=== PATIENT | female | born 1960 | race Hispanic/Latino ===

== ENCOUNTER → 2020-09-27 | Outpatient (CLI) | payer MEDICARE ==
[~2020-09-27] VITALS: Ht 154.9 cm; Wt 61.7 kg
[~2020-09-27] MED LIST: REGADENOSON 0.4 MG/5 ML PF SYG IVP SCH
== END | disposition home or self-care (01) ==
LOC: SHCH 08:35
PROVIDERS: ATTEND Internal Medicine Cardiovascular Disease
DX: Z01.810 Encounter for preprocedural cardiovascular examination (principal); R94.31 Abnormal electrocardiogram [ECG] [EKG]
CPT/HCPCS: 78452; 93017; A9500 ×2; 96374

== ENCOUNTER 2021-03-01 10:05 | Emergency (ER) | payer MEDICARE ==
[~2021-03-01] VITALS: Ht 154.9 cm; Wt 61.2 kg
[2021-03-01 10:46] LABS: BASOPHILS % (AUTO) 0.8 % (0.0-5.0); EOSINOPHILS % (AUTO) 3.5 % (0.0-8.0); HEMATOCRIT 40.5 % (36-48); LYMPHOCYTES % (AUTO) 27.8 % (21.0-51.0); MEAN CORPUSCULAR HEMOGLOBIN 31.4 pg (27.0-33.0); MEAN CORPUSCULAR HGB CONC 32.6 g/dL (32.0-36.0); MEAN CORPUSCULAR VOLUME 96.4 fL (79-99); MONOCYTES % (AUTO) 8.3 % (3.0-13.0); NEUTROPHILS % (AUTO) 59.4 % (40.0-77.0); PLATELET COUNT (AUTO) 143 K/uL (130-400); RED CELL DISTRIBUTION WIDTH 12.9 % (11.0-15.5); WHITE BLOOD COUNT (AUTO) 6.6 K/uL (4.8-10.8)
[2021-03-01 10:57] LABS: CREATININE 4.5 mg/dL (0.5-1.5); POTASSIUM 4.3 mmol/L (3.5-5.1)
[2021-03-01 11:02] LABS: ALBUMIN 3.6 g/dL (3.5-5.0); BILIRUBIN,TOTAL 0.4 mg/dL (0.2-1.0); TOTAL PROTEIN, SERUM 7.4 g/dL (6.0-8.3)
[2021-03-01 14:24] VITALS: BP 153/83
[2021-05-01] MEDS ORDERED: LEVO150C4 PO (10:18)
[2021-05-01] MEDS ORDERED: ASPI-1443 PO (10:18)
[2021-05-01] MEDS ORDERED: FOLI0.8T22 PO (10:18)
== END 2021-03-01 14:34 | disposition home or self-care (01) ==
LOC: EDH 10:05
DX: E87.2 Acidosis (principal); R51.9 Headache, unspecified; I11.9 Hypertensive heart disease without heart failure; R53.1 Weakness; Z99.2 Dependence on renal dialysis
CPT/HCPCS: 36415; 71045; 80053; 83605; 85025

== ENCOUNTER 2021-05-02 07:58 | Day surgery (SDC) | payer MEDICARE ==
[2021-04-30 09:21] LABS: BASOPHILS % (AUTO) 0.7 % (0.0-5.0); EOSINOPHILS % (AUTO) 2.4 % (0.0-8.0); HEMATOCRIT 34.2 % (36-48); LYMPHOCYTES % (AUTO) 35.4 % (21.0-51.0); MEAN CORPUSCULAR HEMOGLOBIN 30.8 pg (27.0-33.0); MEAN CORPUSCULAR VOLUME 93.2 fL (79-99); MONOCYTES % (AUTO) 6.5 % (3.0-13.0); NEUTROPHILS % (AUTO) 54.8 % (40.0-77.0); PLATELET COUNT (AUTO) 236 K/uL (130-400); RED BLOOD CELL COUNT(AUTO) 3.67 MIL/uL (4.00-5.50); RED CELL DISTRIBUTION WIDTH 14.5 % (11.0-15.5); WHITE BLOOD COUNT (AUTO) 5.9 K/uL (4.8-10.8)
[2021-04-30 09:48] LABS: CREATININE 7.3 mg/dL (0.5-1.5); POTASSIUM 5.5 mmol/L (3.5-5.1)
[2021-04-30 10:02] LABS: INR 1.06 (0.85-1.15); PROTHROMBIN TIME 11.5 SEC (9.6-11.6)
[2021-05-02] VITALS (10 sets, daily range): BP systolic 100–135; BP diastolic 57–81
[~2021-05-02] VITALS: Ht 154.9 cm; Wt 60.3 kg
[~2021-05-02 07:58] MED LIST changes: +ASPI-1443 PO; +FOLI0.8T22 PO; +LEVO150C4 PO; -REGADENOSON 0.4 MG/5 ML PF SYG IVP SCH
[2021-05-02] MEDS ORDERED: 0.9%NACL 1000ML 1,000 ML IV SCH (08:00)
[2021-05-02 08:54] LABS: CREATININE 6.5 mg/dL (0.5-1.5); POTASSIUM 5.2 mmol/L (3.5-5.1)
[2021-05-02] MEDS ORDERED: IOHEXOL 350 MG/ML 100ML INFUS..BTL IV ONE (09:46)
[2021-05-02] MEDS ORDERED: LIDOCAINE HCL 400MG/20ML VIAL ONE (09:46)
[2021-05-02] MEDS ORDERED: IOHEXOL-350 50ML VIAL IV ONE (09:46)
[2021-05-02] MEDS ORDERED: NITROGLYCERIN 2 MG VIAL IV ONE (09:46)
[2021-05-02] MEDS ORDERED: FENTANYL CITRATE PF 50 MCG/1 ML 2ML VIAL ONE (10:39)
[2021-05-02] MEDS ORDERED: MIDAZOLAM HCL 1 MG/ML 2ML VIAL ONE (10:39)
== END 2021-05-02 15:30 | disposition home or self-care (01) ==
LOC: DAH 07:58
PROVIDERS: ATTEND Internal Medicine Cardiovascular Disease
DX: I25.10 Atherosclerotic heart disease of native coronary artery without angina pectoris (principal); I13.11 Hypertensive heart and chronic kidney disease without heart failure, with stage 5 chronic kidney disease, or end stage renal disease; N18.6 End stage renal disease; Z99.2 Dependence on renal dialysis; F17.210 Nicotine dependence, cigarettes, uncomplicated; Z79.899 Other long term (current) drug therapy; Z79.01 Long term (current) use of anticoagulants; Z79.82 Long term (current) use of aspirin; Z86.718 Personal history of other venous thrombosis and embolism; Z90.49 Acquired absence of other specified parts of digestive tract; Z82.49 Family history of ischemic heart disease and other diseases of the circulatory system; Z83.3 Family history of diabetes mellitus; Z98.890 Other specified postprocedural states
CPT/HCPCS: 36415 ×2; 71045; 80048 ×2; 82948; 85025; 85610; 85730; 93005; 93458; A4215 ×2; A4216; A4221; A4222; A4223 ×3; A4606; A4663; C1760; C1894 ×2; J1644; J2250; J3010; J3490 ×2; J7030; Q9965; Q9967 ×2; 99156; 99157

== ENCOUNTER 2021-05-17 06:30 | Emergency (ER) | payer MEDICARE ==
[~2021-05-17] VITALS: Ht 154.9 cm; Wt 62.6 kg
[2021-05-17 08:48] LABS: BASOPHILS % (AUTO) 0.6 % (0.0-5.0); EOSINOPHILS % (AUTO) 2.5 % (0.0-8.0); HEMATOCRIT 31.2 % (36-48); LYMPHOCYTES % (AUTO) 28.2 % (21.0-51.0); MEAN CORPUSCULAR HEMOGLOBIN 30.8 pg (27.0-33.0); MEAN CORPUSCULAR HGB CONC 32.4 g/dL (32.0-36.0); MEAN CORPUSCULAR VOLUME 95.1 fL (79-99); MONOCYTES % (AUTO) 6.1 % (3.0-13.0); NEUTROPHILS % (AUTO) 62.2 % (40.0-77.0); PLATELET COUNT (AUTO) 162 K/uL (130-400); RED BLOOD CELL COUNT(AUTO) 3.28 MIL/uL (4.00-5.50); RED CELL DISTRIBUTION WIDTH 14.3 % (11.0-15.5); WHITE BLOOD COUNT (AUTO) 8.5 K/uL (4.8-10.8)
[2021-05-17] MEDS ORDERED: LORAZEPAM 2 MG/ML 1 ML VIAL IVP SCH (09:00)
[2021-05-17] MEDS ORDERED: KETOROLAC 30MG VIAL (30MG/ML) IV SCH (09:00)
[2021-05-17 10:00] LABS: ALBUMIN 3.3 g/dL (3.5-5.0); BILIRUBIN,TOTAL 0.4 mg/dL (0.2-1.0); TOTAL PROTEIN, SERUM 6.7 g/dL (6.0-8.3)
[2021-05-17 12:46] VITALS: BP 137/82
[2021-05-17] MEDS ORDERED: LIDOP TD (12:53)
[2021-05-17] MEDS ORDERED: KETO10 PO (12:53)
== END 2021-05-17 13:05 | disposition home or self-care (01) ==
LOC: EDH 06:30
DX: M94.0 Chondrocostal junction syndrome [Tietze] (principal); Z79.82 Long term (current) use of aspirin; Z79.899 Other long term (current) drug therapy
CPT/HCPCS: 36415; 71045; 78582; 80053; 84484; 85025; 85378; 93005; 96374; 96375; 99285; A9540; A9558; J1885; J2060

== ENCOUNTER 2021-09-10 15:09 | Emergency (ER) | payer MEDICARE ==
[~2021-09-10] VITALS: Ht 154.9 cm; Wt 59.0 kg
[~2021-09-10 15:09] MED LIST changes: +KETO10 PO; +LIDOP TD
[2021-09-10 15:15] VITALS: BP 157/82
[2021-09-10 16:02] LABS: BASOPHILS % (AUTO) 0.9 % (0.0-5.0); EOSINOPHILS % (AUTO) 3.9 % (0.0-8.0); LYMPHOCYTES % (AUTO) 39.5 % (21.0-51.0); MEAN CORPUSCULAR HEMOGLOBIN 30.1 pg (27.0-33.0); MEAN CORPUSCULAR HGB CONC 32.4 g/dL (32.0-36.0); MEAN CORPUSCULAR VOLUME 92.7 fL (79-99); MONOCYTES % (AUTO) 7.9 % (3.0-13.0); NEUTROPHILS % (AUTO) 47.6 % (40.0-77.0); PLATELET COUNT (AUTO) 156 K/uL (130-400); RED BLOOD CELL COUNT(AUTO) 3.56 MIL/uL (4.00-5.50); RED CELL DISTRIBUTION WIDTH 13.2 % (11.0-15.5); WHITE BLOOD COUNT (AUTO) 5.7 K/uL (4.8-10.8)
[2021-09-10 16:19] LABS: ALBUMIN 3.8 g/dL (3.5-5.0); BILIRUBIN,TOTAL 0.4 mg/dL (0.2-1.0); POTASSIUM 5.5 mmol/L (3.5-5.1); TOTAL PROTEIN, SERUM 7.2 g/dL (6.0-8.3)
[2021-09-10 16:24] LABS: CREATININE 8.9 mg/dL (0.5-1.5)
[2021-09-10] MEDS ORDERED: ONDANSETRON 4MG INJ IVP ONE ×2 (16:30)
[2021-09-10] MEDS ORDERED: 0.9%NACL 1000ML 1,000 ML IV ONE (16:30)
[2021-09-10] MEDS ORDERED: PANTOPRAZOLE 40 MG/VIAL IVP ONE (17:00)
[2021-09-10] MEDS ORDERED: FAMO20TA8 PO (18:20)
[2021-09-10] MEDS ORDERED: PANTOPRAZOLE 40 MG/VIAL ONE (18:37)
== END 2021-09-10 18:42 | disposition home or self-care (01) ==
LOC: EDH 15:09
DX: K21.9 Gastro-esophageal reflux disease without esophagitis (principal); I13.10 Hypertensive heart and chronic kidney disease without heart failure, with stage 1 through stage 4 chronic kidney disease, or unspecified chronic kidney disease; N18.9 Chronic kidney disease, unspecified; Z90.49 Acquired absence of other specified parts of digestive tract; Z95.1 Presence of aortocoronary bypass graft; Z98.890 Other specified postprocedural states; Z79.82 Long term (current) use of aspirin; Z79.899 Other long term (current) drug therapy; Z88.8 Allergy status to other drugs, medicaments and biological substances
CPT/HCPCS: 36415; 80053; 82150; 83690; 84484; 85025; 93005; 96374; 96375; 99284; C9113; J2405

== ENCOUNTER 2023-01-20 10:54 | Emergency (ER) | payer OTHER, MEDICARE ==
[~2023-01-20] VITALS: Ht 154.9 cm; Wt 51.3 kg
[2023-01-20 11:52] LABS: BASOPHILS # (AUTO) 0.04 K/uL (0.00-0.20); EOSINOPHILS # (AUTO) 0.06 K/uL (0.00-0.70); EOSINOPHILS % (AUTO) 1.5 % (0.0-8.0); HEMATOCRIT 30.8 % (36-48); IMMATURE GRANULOCYTE ABSOLUTE 0.01 K/uL (0-1); LYMPHOCYTES % (AUTO) 24.3 % (21.0-51.0); MEAN CORPUSCULAR HEMOGLOBIN 29.1 pg (27.0-33.0); MEAN CORPUSCULAR HGB CONC 31.5 g/dL (32.0-36.0); MEAN CORPUSCULAR VOLUME 92.5 fL (79-99); MONOCYTES # (AUTO) 0.3 K/uL (0.1-1.0); MONOCYTES % (AUTO) 6.4 % (3.0-13.0); NEUTROPHILS # (AUTO) 2.7 K/uL (1.8-7.7); NEUTROPHILS % (AUTO) 66.6 % (40.0-77.0); PLATELET COUNT (AUTO) 235 K/uL (130-400); RED BLOOD CELL COUNT(AUTO) 3.33 MIL/uL (4.00-5.50); RED CELL DISTRIBUTION WIDTH 14.9 % (11.0-15.5)
[2023-01-20 11:58] LABS: CREATININE 6.8 mg/dL (0.5-1.5); POTASSIUM 4.1 mmol/L (3.5-5.1)
[2023-01-20 12:02] LABS: ALBUMIN 3.4 g/dL (3.5-5.0); BILIRUBIN,TOTAL 0.3 mg/dL (0.2-1.0); TOTAL PROTEIN, SERUM 7.1 g/dL (6.0-8.3)
[2023-01-20 12:29] VITALS: BP 117/73; PULSE 66; RESP 18; O2SAT 98
== END 2023-01-20 12:52 | disposition home or self-care (01) ==
LOC: EDH 10:54
DX: I13.2 Hypertensive heart and chronic kidney disease with heart failure and with stage 5 chronic kidney disease, or end stage renal disease (principal); N18.6 End stage renal disease; I50.9 Heart failure, unspecified; D64.9 Anemia, unspecified; Z99.2 Dependence on renal dialysis; Z90.89 Acquired absence of other organs
CPT/HCPCS: 36415; 71045; 80053; 83880; 84484; 85025; 93005

== ENCOUNTER 2023-03-09 01:58 | Inpatient (IN) | payer OTHER, MEDICARE ==
[2023-03-09] VITALS (30 sets, daily range): BP systolic 129–176; BP diastolic 81–99; PULSE 63–111; RESP 14–34; TEMP 98.7–98.8; O2SAT 96–100
[~2023-03-09] VITALS: Ht 154.9 cm; Wt 50.3 kg
[2023-03-09 02:29] LABS: BASOPHILS # (AUTO) 0.05 K/uL (0.00-0.20); BASOPHILS % (AUTO) 0.5 % (0.0-5.0); EOSINOPHILS # (AUTO) 0.22 K/uL (0.00-0.70); HEMATOCRIT 35.8 % (36-48); IMMATURE GRANULOCYTE ABSOLUTE 0.05 K/uL (0-1); LYMPHOCYTES # (AUTO) 1.4 K/uL (1.0-4.8); LYMPHOCYTES % (AUTO) 13.1 % (21.0-51.0); MEAN CORPUSCULAR HEMOGLOBIN 27.3 pg (27.0-33.0); MEAN CORPUSCULAR HGB CONC 30.2 g/dL (32.0-36.0); MEAN CORPUSCULAR VOLUME 90.6 fL (79-99); MONOCYTES # (AUTO) 0.4 K/uL (0.1-1.0); MONOCYTES % (AUTO) 3.4 % (3.0-13.0); NEUTROPHILS # (AUTO) 8.7 K/uL (1.8-7.7); NEUTROPHILS % (AUTO) 80.5 % (40.0-77.0); PLATELET COUNT (AUTO) 183 K/uL (130-400); RED BLOOD CELL COUNT(AUTO) 3.95 MIL/uL (4.00-5.50); RED CELL DISTRIBUTION WIDTH 18.6 % (11.0-15.5); WHITE BLOOD COUNT (AUTO) 10.8 K/uL (4.8-10.8)
[2023-03-09] MEDS ORDERED: HYDRALAZINE 20MG/ML VIAL ONE (02:31)
[2023-03-09 02:43] LABS: SARS-CoV-2, RNA, NAAT NEGATIVE SARS CoV-2 (NEGATIVE)
[2023-03-09 02:45] LABS: ALBUMIN 3.3 g/dL (3.5-5.0); BILIRUBIN,TOTAL 0.7 mg/dL (0.2-1.0); POTASSIUM 4.7 mmol/L (3.5-5.1); TOTAL PROTEIN, SERUM 6.9 g/dL (6.0-8.3)
[2023-03-09 02:46] LABS: CREATININE 9.6 mg/dL (0.5-1.5)
[2023-03-09 02:47] LABS: INFLUENZA TYPE A Negative For Type A (NEGATIVE); INFLUENZA TYPE B Negative For Type B (NEGATIVE)
[2023-03-09] MEDS ORDERED: HYDRALAZINE 20MG/ML VIAL IV ONE ×2 (03:00)
[2023-03-09] MEDS ORDERED: IPRATROPIUM/ALBUTEROL SULFATE 3 ML SOLUTION IH ONE (03:00)
[2023-03-09] MEDS ORDERED: SOLU-MEDROL 125MG VIAL IVP ONE (03:00)
[2023-03-09] MEDS ORDERED: ACETAMINOPHEN 500 MG TABLET ONE (03:24)
[2023-03-09] MEDS ORDERED: ACETAMINOPHEN 500 MG TABLET PO ONE (03:30)
[2023-03-09 03:57] LABS: B-TYPE NATRIURETIC PEPTIDE > 5000 pg/mL (0-100)
[2023-03-09] MEDS ORDERED: MORPHINE 2 MG SYG ONE (03:59)
[2023-03-09] MEDS ORDERED: MORPHINE 2 MG SYG IV PRN (04:00)
[2023-03-09] MEDS ORDERED: ACETAMINOPHEN 325 MG TAB PO PRN ×2 (04:00)
[2023-03-09] MEDS ORDERED: MORPHINE 2 MG SYG IVP ONE (04:00)
[2023-03-09] MEDS ORDERED: LACTULOSE 20 GM/30 ML UDCUP PO PRN (04:00)
[2023-03-09] MEDS ORDERED: LABETALOL 20MG VIAL IV PRN (04:00)
[2023-03-09] MEDS ORDERED: ONDANSETRON 4MG INJ IV PRN (04:00)
[2023-03-09] MEDS: IPRATROPIUM/ALBUTEROL SULFATE 3 ML SOLUTION IH SCH ×4 (06:59→23:30)
[2023-03-09] MEDS: FAMOTIDINE 20MG VIAL IV SCH ×2 (08:09→21:00)
[2023-03-09] MEDS ORDERED: HEPARIN 5,000 UNIT VIAL IJ PRN (08:45)
[2023-03-09] MEDS ORDERED: HYDRALAZINE 20MG/ML VIAL IV PRN (11:30)
[2023-03-09] MEDS ORDERED: ONDANSETRON 4MG INJ IVP PRN (11:30)
[2023-03-09] MEDS: ASPIRIN 81 MG EC TAB PO SCH (18:37)
[2023-03-10 03:30] VITALS: BP 121/70; PULSE 78; RESP 20
[2023-03-10 04:34] LABS: HEMATOCRIT 35.1 % (36-48); MEAN CORPUSCULAR HEMOGLOBIN 27.3 pg (27.0-33.0); MEAN CORPUSCULAR HGB CONC 30.8 g/dL (32.0-36.0); MEAN CORPUSCULAR VOLUME 88.9 fL (79-99); RED BLOOD CELL COUNT(AUTO) 3.95 MIL/uL (4.00-5.50); RED CELL DISTRIBUTION WIDTH 19.5 % (11.0-15.5); WHITE BLOOD COUNT (AUTO) 6.9 K/uL (4.8-10.8)
[2023-03-10 04:59] LABS: ALBUMIN 3.3 g/dL (3.5-5.0); BILIRUBIN,TOTAL 0.6 mg/dL (0.2-1.0); CREATININE 6.9 mg/dL (0.5-1.5); MAGNESIUM 2.1 mg/dL (1.80-2.40); POTASSIUM 4.4 mmol/L (3.5-5.1); TOTAL PROTEIN, SERUM 6.9 g/dL (6.0-8.3)
[2023-03-10] MEDS: IPRATROPIUM/ALBUTEROL SULFATE 3 ML SOLUTION IH SCH (06:31)
[2023-03-10 06:33] VITALS: PULSE 93; RESP 18; O2SAT 99
[2023-03-10 06:34] VITALS: PULSE 93; RESP 18
[2023-03-10 07:48] VITALS: BP 166/107; PULSE 86; RESP 18
[2023-03-10 08:00] VITALS: O2SAT 99
[2023-03-10] MEDS: ASPIRIN 81 MG EC TAB PO SCH (08:52)
[2023-03-10] MEDS ORDERED: CEFTRIAXONE 1G VIAL IVPB SCH (09:00)
[2023-03-10] MEDS ORDERED: FAMOTIDINE 20MG TAB PO SCH (09:00)
[2023-03-10] MEDS ORDERED: AMLO5TAB4 PO (09:22)
[2023-03-10] MEDS ORDERED: AEC81 PO (09:22)
[2023-03-10] MEDS ORDERED: AZIT500T4 PO (09:23)
[2023-03-10] MEDS ORDERED: CEFP200T14 PO (09:24)
== END 2023-03-10 11:05 | disposition home or self-care (01) | DRG 291 ==
LOC: EDH 01:58 → EDHIP 03:57 → 2AH 05:00
PROVIDERS: ADMIT Hospitalist; ATTEND Hospitalist
PROC: 5A1D70Z Performance of Urinary Filtration, Intermittent, Less than 6 Hours Per Day (ICD-10-PCS; principal; 2023-03-09)
PROC: 5A09357 Assistance with Respiratory Ventilation, Less than 24 Consecutive Hours, Continuous Positive Airway Pressure (ICD-10-PCS; 2023-03-09)
DX: I13.2 Hypertensive heart and chronic kidney disease with heart failure and with stage 5 chronic kidney disease, or end stage renal disease (principal); J96.01 Acute respiratory failure with hypoxia; N18.6 End stage renal disease; Z20.822 Contact with and (suspected) exposure to COVID-19; Z99.2 Dependence on renal dialysis; E11.22 Type 2 diabetes mellitus with diabetic chronic kidney disease; D64.9 Anemia, unspecified; E03.9 Hypothyroidism, unspecified; F17.200 Nicotine dependence, unspecified, uncomplicated; I25.10 Atherosclerotic heart disease of native coronary artery without angina pectoris; J44.9 Chronic obstructive pulmonary disease, unspecified; I50.9 Heart failure, unspecified; Z82.49 Family history of ischemic heart disease and other diseases of the circulatory system; Z83.3 Family history of diabetes mellitus; Z90.49 Acquired absence of other specified parts of digestive tract; Z91.199 Patient's noncompliance with other medical treatment and regimen due to unspecified reason
CPT/HCPCS: 36415; 71045; 80053; 82948; 83735; 83880; 84484; 85025; 85027; 87340; 87635; 87804; 90935; 93005; 94640; 94660; 96374; 96375; 99291; 99292; C9803; G0378; J0360; J0696; J1644; J2270; J2930; J3490

== ENCOUNTER 2024-11-15 10:53 | Emergency (ER) | payer MEDICARE ==
[~2024-11-15] VITALS: Ht 154.9 cm; Wt 59.0 kg
[~2024-11-15 10:53] MED LIST changes: +ALBU90AE3 IH; +AMLO-258 PO; -ASPI-1443 PO; +BENZ-39 PO; +BENZ200C53 PO; -FOLI0.8T22 PO; +HYDR25TA67 PO; -KETO10 PO; -LEVO150C4 PO; -LIDOP TD; +METO-408 PO
--- NOTE | 2024-11-15 11:08 | ERN ---
General Chief Complaint: Shortness of Breath Stated Complaint: SOB Time Seen by MD: 11:02 Source: patient History of Present Illness Initial Comments Patient is a 64-year-old female coming in complaining of shortness of breath. Per patient she has been having shortness of breath for one month. Patient has a history of end-stage renal disease in his on dialysis. Patient also states he smokes daily. She believes she might have an infection in the lungs in his here for further evaluation. Allergies: Coded Allergies: apixaban (Unverified Allergy, Unknown, 09/10/21) Home Meds Reported Medications Albuterol Sulfate (Proair Digihaler) 90 Mcg Aer.pw.bas, 90 MCG IH AD 03/07/24 Amlodipine Besylate (Amlodipine Besylate) 10 Mg Tablet, 1 TAB PO DAILY for 30 Days, #30 TAB 0 Refills 03/07/24 Benzonatate (Tessalon Perles) 100 Mg Cap, 100 MG PO TID, CAP 03/07/24 Benzonatate (Benzonatate) 200 Mg Capsule, 1 CAP PO TIDP PRN for cough for 7 Days, #21 CAP 0 Refills 03/07/24 Hydralazine HCl (Hydralazine HCl) 25 Mg Tablet, 1 TAB PO BID for 30 Days, #60 TAB 0 Refills 03/07/24 Metoprolol Succinate (Metoprolol Succinate) 25 Mg Tab.er.24h, 1 TAB PO DAILY for 30 Days, #30 TAB 0 Refills 03/07/24 Past Medical History Past Medical History: Anxiety, Arthritis, Hypertension, Renal Disese Medical History Other: THYROID DISEASE Past Surgical History: Other, None Surgical History Other: DIALYSIS CATH Family History Family History: DM, HTN Social History Social History: Negative, Lives with family, Other ROS Dictation CONSTITUTIONAL: No chills, no fever, no weakness, no diaphoresis, no malaise. HEAD/FACE: No signs of trauma. EENT: No eye pain, no blurred vision, no tearing, no double vision, no ear pain, no ear discharge, no nose pain, no nasal congestion, no throat pain, no throat swelling, no mouth pain. RESPIRATORY: No cough, no orthopnea, SOB, no stridor, no wheezing. CARDIOVASCULAR: No chest pain, no edema, no palpitations, no syncope. GASTROINTESTINAL/ABDOMINAL: No abdominal pain, no constipation, no diarrhea, no nausea, no vomiting. GENITOURINARY: No abnormal discharge, no dysuria, no frequent urination, no hematuria. No complaints of pain in the genitals. MUSCULOSKELETAL: No back pain, no gout, no joint pain, no joint swelling, no muscle pain, no muscle stiffness, no neck pain. INTEGUMENTARY: No change in color, no change in hair/nails, no dryness, no lesion, no lumps, no rash. NEUROLOGICAL/PSYCH: No anxiety, not depressed, no emotional problem, no headache, no numbness, no pre-existing deficit, no history of seizures, no tremors, no weakness. HEMATOLOGIC/LYMPHATIC: Not anemic, no history of blood clots, no apparent bleeding, no bruising, glands not swollen. All Systems Negative, Except as Noted. Physical Exam Physical Exam Dictation VITAL SIGNS: Reviewed. GENERAL APPEARANCE: Alert, oriented x3, no acute distress, obese. HEAD AND FACE: Non-traumatic. EYES: PERRL, pink conjunctivas, eyelid no trauma, anterior chamber clear. EARS: Pinnas intact and no signs of trauma or erythema. Ear canals clear and no discharge. TMs no erythema. NOSE: No discharge, no bleeding. OROPHARYNX: Mouth normal, teeth no caries, tongue pink. Pharynx clear, no erythema. Tonsils no exudates, no abscesses noted. Mucous membrane moist. NECK: Supple, non-tender, no thyromegaly, no masses, no JVD, no bruits. BREAST: Deferred. CHEST: No tenderness, no crepitus, no paradoxical movement, no retractions. LUNGS: Clear, well-ventilated, symmetric, no rales, no wheezing, no rhonchi, no stridor, good breath sounds bilaterally. HEART: Regular rate, regular rhythm, no murmur, no gallops. VASCULAR: No peripheral edema. ABDOMEN: Soft, positive bowel sounds, nondistended, no guarding, nontender, no rebound, no masses no hepatomegaly, no splenomegaly, no Marley's sign, no hernias. RECTAL: Deferred. GENITAL: Deferred. NEUROLOGICAL: Normal speech, gross motor function intact, gross sensory function intact. MUSCULOSKELETAL: Neck nontender, full range of motion, back nontender, full range of motion. EXTREMITIES: Nontender, full range of motion. SKIN: Color pink, dry, no turgor, no rash, no lacerations, no abrasions, no contusions. LYMPHATICS: Deferred. Results Laboratory and Microbiology Lab and Micro Result Laboratory Tests Test 11/15/24 11:27 White Blood Count 6.3 K/uL (4.8-10.8) Red Blood Count 3.25 MIL/uL (4.00-5.50) L Hemoglobin 10.5 g/dL (12.0-16.0) L Hematocrit 32.9 % (36-48) L Mean Corpuscular Volume 101.2 fL (79-99) H Mean Corpuscular Hemoglobin 32.3 pg (27.0-33.0) Mean Corpuscular Hemoglobin Concent 31.9 g/dL (32.0-36.0) L Red Cell Distribution Width 14.8 % (11.0-15.5) Platelet Count 214 K/uL (130-400) Mean Platelet Volume 10.9 fL (7.5-10.5) H Immature Granulocyte % (Auto) 0.8 % (0-1) Neutrophils (%) (Auto) 75.0 % (40.0-77.0) Lymphocytes (%) (Auto) 14.7 % (21.0-51.0) L Monocytes (%) (Auto) 7.6 % (3.0-13.0) Eosinophils (%) (Auto) 1.4 % (0.0-8.0) Basophils (%) (Auto) 0.5 % (0.0-5.0) Neutrophils # (Auto) 4.7 K/uL (1.8-7.7) Lymphocytes # (Auto) 0.9 K/uL (1.0-4.8) L Monocytes # (Auto) 0.5 K/uL (0.1-1.0) Eosinophils # (Auto) 0.09 K/uL (0.00-0.70) Basophils # (Auto) 0.03 K/uL (0.00-0.20) Absolute Immature Granulocyte (auto 0.05 K/uL (0-1) Nucleated Red Blood Cells 0.0 % (0.0-0.19) Sodium Level 143 mmol/L (136-145) Potassium Level 5.3 mmol/L (3.5-5.1) H Chloride Level 103 mmol/L (101-111) Carbon Dioxide Level 28 mmol/L (21-32) Blood Urea Nitrogen 46 mg/dL (7-18) H Creatinine 7.3 mg/dL (0.5-1.0) H Glomerular Filtration Rate Calc 6 mL/min (>90) Random Glucose 104 mg/dL (70-105) Total Calcium 9.1 mg/dL (8.5-10.1) Magnesium Level 2.50 mg/dL (1.80-2.40) H Troponin I High Sensitivity 172 ng/L (4-50) *H B-Type Natriuretic Peptide > 5000 pg/mL (0-100) H Labs Reviewed?: Yes EKG/XRAY/US/CT/MRI EKG Comment 11/15/2024 TIME 11:25 A.M. VENTRICULAR RATE 79 SINUS RHYTHM [place] [address] WAVE ELEVATION OR DEPRESSION X-RAY Comment [place] [id number] [place] [id number] IMAGING REPORT Signed PATIENT: GIOVANI RIVERA MR#: [id number] : 1960 SEX: F AGE: 64 LOCATION: [facility] ORDER 1106 STATUS: REG REPORT#: [id number] SERVICE 1105 REASON: sob ORDERING PHYSICIAN: NAUN SHELTON MD PROCEDURE: CXR1VW - CHEST 1VW EXAM: CR Chest, 1 View. CLINICAL HISTORY: sob COMPARISON: Radiograph from April 27, 2024 FINDINGS: Dual-lumen right IJ central venous catheter tip projects over the right atrium. Mild multifocal airspace disease bilaterally may reflect alveolar edema. No pleural effusion or pneumothorax. Moderate cardiomegaly, and pulmonary vascular congestion. IMPRESSION: 1. Bilateral multifocal airspace disease, possibly reflecting alveolar edema 2. Moderate cardiomegaly with pulmonary vascular congestion 3. Right IJ dual-lumen central venous catheter with tip projecting over the right atrium /[place] DICTATED BY: GONZÁLEZ LOPEZ Jr., MD DATE: 11/15/24 1257 ELECTRONICALLY SIGNED BY: GONZÁLEZ LOPEZ Jr., MD DATE: 11/15/24 1257 [facility] MDM: Differential diagnosis: DISEASE REQUIRING DIALYSIS, SHORTNESS OF BREATH, ELEVATED TROPONIN Rationale: Tests considered and ordered secondary to shared decision making include: Previous outside records reviewed: Old ER visits. Risk of complication and/or morbidity or mortality of patient management: None Medications-Per medication reconciliation Need for hospitalization: Patient does meet criteria for hospitalization. Need for emergency major/minor surgery: No There are no social concerns with this patient. Prescription drug management Prescriptions will include symptomatic care Patient's prior external medical records from other ER visits were reviewed by me as indicated. Prior testing and results from previous visits were reviewed. Prior tests were taken into account with medical decision making and resource utilization, independent historian/historians were used to obtain complete medical history. I independently interpreted the test that were performed, results were reviewed by me and considered findings on radiology if ordered. Medical management and examination interpretation discussions were had by me with other qualified healthcare professionals as indicated for the patient's care. WAS ADVISED BY NURSING STAFF THAT PATIENT ELOPED WITHOUT NOTIFYING ME. ED Course Orders Procedure Category Date Status Time Cbc With Differential LAB 11/15/24 Complete 11:05 Chest 1vw RAD 11/15/24 Resulted 11:05 12 Lead Ekg Tracing- EKG 11/15/24 Logged Technical 11:05 Magnesium LAB 11/15/24 Complete 11:05 Troponin I High LAB 11/15/24 Complete Sensitivity 11:05 Urinalysis Profile LAB 11/15/24 Logged 11:05 Basic Metabolic Panel LAB 11/15/24 Complete 11:05 Influenza Type A & B, LAB 11/15/24 Logged Rapid 11:05 Covid Rna Naat LAB 11/15/24 Logged 11:05 B-Type Natriuretic LAB 11/15/24 Complete Peptide 11:05 Vital Signs Date Time Temp Pulse Resp B/P (MAP) Pulse Ox O2 Delivery O2 Flow Rate FiO2 11/15/24 11:39 98.2 80 18 157/82 95 Room Air* 0 21 11/15/24 10:58 98.1 84 18 173/87 95 Room Air 0 DX & DISP Disposition: AMA Departure Impression: Primary Impression: ACS (acute coronary syndrome) Additional Impressions: End stage renal disease, Fluid overload Condition: Against Medical Advice Referrals: JENNIFER PHELPS NP (PCP) NAUN SHELTON MD Nov 15, 2024 11:08
[2024-11-15 11:39] VITALS: BP 157/82; PULSE 80; RESP 18; TEMP 98.3; O2SAT 95
--- NOTE | 2024-11-15 11:43 | NUR ---
pt refused nasal swabs
[2024-11-15 11:44] LABS: IMMATURE GRANULOCYTE ABSOLUTE 0.05 K/uL (0-1); NUCLEATED RED BLOOD CELLS 0.0 % (0.0-0.19); PLATELET COUNT (AUTO) 214 K/uL (130-400); RED BLOOD CELL COUNT(AUTO) 3.25 MIL/uL (4.00-5.50); RED CELL DISTRIBUTION WIDTH 14.8 % (11.0-15.5); WHITE BLOOD COUNT (AUTO) 6.3 K/uL (4.8-10.8)
[2024-11-15 11:47] LABS: CREATININE 7.3 mg/dL (0.5-1.0); GLOMERULAR FILTR. RATE CALC 6.0 mL/min (>90); GLUCOSE,RANDOM 104.0 mg/dL (70-105); SODIUM SERUM 143.0 mmol/L (136-145); UREA NITROGEN, BLOOD 46.0 mg/dL (7-18)
--- NOTE | 2024-11-15 11:58 | HMCIMG ---
EXAM: CR Chest, 1 View. CLINICAL HISTORY: sob COMPARISON: Radiograph from April 27, 2024 FINDINGS: Dual-lumen right IJ central venous catheter tip projects over the right atrium. Mild multifocal airspace disease bilaterally may reflect alveolar edema. No pleural effusion or pneumothorax. Moderate cardiomegaly, and pulmonary vascular congestion. IMPRESSION: 1. Bilateral multifocal airspace disease, possibly reflecting alveolar edema 2. Moderate cardiomegaly with pulmonary vascular congestion 3. Right IJ dual-lumen central venous catheter with tip projecting over the right atrium /[place]
--- NOTE | 2024-11-15 12:25 | NUR ---
pt refused to wait to speak to md about med needs and walked out after iv removal
--- NOTE | 2024-11-15 12:55 | EKG ---
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
== END 2024-11-15 12:27 | disposition left against medical advice (07) ==
LOC: EDH 10:53
DX: I24.9 Acute ischemic heart disease, unspecified (principal); E87.70 Fluid overload, unspecified; I12.0 Hypertensive chronic kidney disease with stage 5 chronic kidney disease or end stage renal disease; N18.6 End stage renal disease; M19.90 Unspecified osteoarthritis, unspecified site; F17.200 Nicotine dependence, unspecified, uncomplicated; Z79.899 Other long term (current) drug therapy; Z99.2 Dependence on renal dialysis
CPT/HCPCS: 36415; 71045; 80048; 83735; 83880; 84484; 85025; 93005; 99285